=== PATIENT | female | born 1935 ===

== ENCOUNTER → 2018-06-03 | Outpatient (CLI) | payer MEDICARE | LOC: LAB SHORT 18:23 → LAB 18:23 | DX: D48.5 Neoplasm of uncertain behavior of skin (principal); L57.0 Actinic keratosis; L08.9 Local infection of the skin and subcutaneous tissue, unspecified; L81.4 Other melanin hyperpigmentation; L82.1 Other seborrheic keratosis | CPT/HCPCS: 87070; 87077; 87147; 87186; 87205 ==